=== PATIENT | female | born 1945 | race Caucasian/White ===

== ENCOUNTER 2018-01-05 06:43 | Day surgery (SDC) | payer MEDICARE ==
[~2018-01-05] VITALS: Ht 157.5 cm; Wt 82.1 kg
[2018-01-05] VITALS (11 sets, daily range): BP systolic 124–146; BP diastolic 58–78; PULSE 62–90; TEMP 97.4–98.9
[~2018-01-05 06:43] MED LIST: ASPIRIN E.C. 8181 MG PO; CALCIUM 600MG+D1 TAB PO; CALCIUM600 M2 PO; COREG 3.123.125 MG/T PO; GLUCOPHAGE500 MG/TAB PO; GLUCOSAMINE 1000 PO; MASON NATURAL1200 MG PO; NORCO 325 MG-7.1 TAB PO; PREVACID 15MG15 M1 PO; PRILOSEC 20MG20 MG PO; SIMVASTATIN40 MG PO; TYLENOL 500MG500 MG PO; ZOCOR 40MG40 MG PO
[2018-01-05] MEDS ORDERED: OSTEO-BI-FLEX 21 TAB PO (09:16)
[2018-01-06 03:31] VITALS: BP 141/51; PULSE 76; TEMP 98.3
[2018-01-06 07:54] VITALS: BP 131/65; PULSE 82; TEMP 98.6
== END 2018-01-06 11:10 | disposition home or self-care (01) ==
LOC: SDCO 06:43 → SURG 15:19 → SDCO 01-06 11:10
DX: D05.12 Intraductal carcinoma in situ of left breast (principal); Z90.11 Acquired absence of right breast and nipple; Z85.3 Personal history of malignant neoplasm of breast; Z92.3 Personal history of irradiation; E11.9 Type 2 diabetes mellitus without complications; Z79.84 Long term (current) use of oral hypoglycemic drugs; Z79.82 Long term (current) use of aspirin; K21.9 Gastro-esophageal reflux disease without esophagitis; I10 Essential (primary) hypertension; Z87.891 Personal history of nicotine dependence; M54.10 Radiculopathy, site unspecified; Z80.0 Family history of malignant neoplasm of digestive organs; Z80.3 Family history of malignant neoplasm of breast; Z87.01 Personal history of pneumonia (recurrent)
CPT/HCPCS: OP; A9541; J0360; J0690; J1100; J2250; J2270; J2405; J2704; J2795; J3010; J7120